=== PATIENT | female | born 1960 | race Caucasian/White ===

== ENCOUNTER 2016-12-14 14:24 | Emergency (ER) | payer OTHER ==
[~2016-12-14 14:24] MED LIST: FLUOXETINE HCL20 MG PO; KLONOPIN TAB 00.5 MG PO; LORTAB 5-325 M1 EACH PO; METOPROLOL TART25 MG PO; NEURONTIN 400400 MG PO
[2016-12-14 15:26] LABS: HEMOGLOBIN 13.1 gm/dl (12.3-15.3); RED BLOOD COUNT 4.47 M/UL (4.00-5.10); WHITE BLOOD COUNT 8.9 K/UL (4.5-11.0)
[2016-12-14 15:52] LABS: BUN/CREATININE RATIO 18 (0-10)
== END 2016-12-15 00:30 ==
LOC: ER1 14:24
PROVIDERS: Emergency Medicine
DX: F41.9 Anxiety disorder, unspecified (principal); R07.9 Chest pain, unspecified; F32.9 Major depressive disorder, single episode, unspecified; Z88.8 Allergy status to other drugs, medicaments and biological substances; Z79.899 Other long term (current) drug therapy
CPT/HCPCS: 36415; 71010; 80053; 80307; 81001; 82550; 82553; 83874; 84484; 85025; 85379; 93005; 96360; 99285; G0480

== ENCOUNTER 2021-06-29 10:28 | Emergency (ER) | payer OTHER ==
[2021-06-29] MEDS ORDERED: TORADOL 10 MG T10 MG PO (14:30)
== END 2021-06-29 15:30 | disposition home or self-care (01) ==
LOC: ER1 10:28
DX: S40.022A Contusion of left upper arm, initial encounter (principal); S10.93XA Contusion of unspecified part of neck, initial encounter; S70.212A Abrasion, left hip, initial encounter; R51.9 Headache, unspecified; F17.200 Nicotine dependence, unspecified, uncomplicated; Z88.1 Allergy status to other antibiotic agents; W07.XXXA Fall from chair, initial encounter; Y92.009 Unspecified place in unspecified non-institutional (private) residence as the place of occurrence of the external cause
CPT/HCPCS: 71046; 72040; 72100; 72125; 72170; 73030; 96372; 99284; J1885